=== PATIENT | female | born 1940 ===

== ENCOUNTER 2018-03-05 22:48 | Emergency (ER) | payer OTHER ==
[2018-03-05 22:49] VITALS: BMI 30.8
[2018-03-05 23:07] VITALS: RESP 18; TEMP 98; O2SAT 98
--- NOTE | 2018-03-05 23:27 | C.PDOC ---
History Of Present Illness Patient seen tonite due to high bloo pressure reading at [facility]. Having mild headache. No dizziness, no nausea or vomiting. denoies any chest pain or SOB. Chief Complaint (Nursing): High Blood Pressure History Per: Patient, Family History/Exam Limitations: no limitations Onset/Duration Of Symptoms: Hrs Current Symptoms Are (Timing): Still Present Associated Symptoms: denies: Chest Pain, Dyspnea, Dizziness, Blurred Vision, Focal Weakness, Headache Quality Of Symptoms: Asymptomatic Severity: Mild Pain Scale Rating Of: 0 Exacerbating Factor(s): Pos: None Recent travel outside of the [place]: No Additional History Per: Family Past Medical History Reviewed: Historical Data, Nursing Documentation, Vital Signs Vital Signs: Last Vital Signs Temp 98 F 03/05/18 23:04 Pulse 70 03/06/18 00:28 Resp 18 03/06/18 00:28 BP 167/55 H 03/06/18 00:28 Pulse Ox 98 03/06/18 00:31 - Medical History PMH: Diabetes, Gastritis, HTN, Hypercholesterolemia, Hypothyroidism, Kidney Stones Denies: Chronic Kidney Disease Surgical History: No Surg Hx, - [facility] Procedures DX ULTRASOUND-HEAD/NECK (01/13/15) PERCUTAN NEEDLE BX OF THYROID GLAND (01/13/15) Family History: States: Unknown Family Hx - Social History Hx Tobacco Use: No Hx Alcohol Use: No Hx Substance Use: No - Immunization History Hx Tetanus Toxoid Vaccination: No Hx Influenza Vaccination: No Hx Pneumococcal Vaccination: No Review Of Systems Constitutional: Negative for: Fever, Chills, Sweats Cardiovascular: Negative for: Chest Pain, Palpitations Respiratory: Negative for: Cough, Shortness of Breath, Hemoptysis Gastrointestinal: Negative for: Nausea, Vomiting, Abdominal Pain, Diarrhea Musculoskeletal: Negative for: Neck Pain Neurological: Negative for: Weakness, Numbness, Incoordination, Change in Speech , Confusion, Seizures, Altered Mental Status, Headache Psych: Negative for: Anxiety Physical Exam - Physical Exam Appears: Non-toxic, No Acute Distress Skin: Normal Color, Warm, Dry Head: Atraumatic, Normacephalic Eye(s): bilateral: Normal Inspection Oral Mucosa: Moist Neck: Normal ROM, Supple Chest: Symmetrical Cardiovascular: Rhythm Regular Respiratory: Normal Breath Sounds, No Rales, No Rhonchi, No Wheezing Gastrointestinal/Abdominal: Soft, No Tenderness, No Guarding, No Rebound Extremity: Normal ROM, No Tenderness, No Swelling Neurological/Psych: Oriented x3, Normal Speech Gait: Steady ED Course And Treatment - Laboratory Results Result Diagrams: 03/05/18 23:44 03/05/18 23:44 O2 Sat by Pulse Oximetry: 98 (ON RA) Pulse Ox Interpretation: Normal Medical Decision Making Medical Decision Making: Plan: * Labs * Norvasac 5 mg PO On reexamination patients BP was 167/86 Disposition Counseled Patient/Family Regarding: Diagnosis - Disposition Referrals: Non [facility] Provider, [Primary Care Provider] - [facility] [Outside] Disposition: HOME/ ROUTINE Disposition Time: 00:29 Condition: IMPROVED Additional Instructions: to take blood pressure medication 2X a day Instructions: High Blood Pressure (DC), Low Salt Diet, Medicines for High Blood Pressure Forms: [facility] (Belizean), Gen Discharge Inst Occitan Print Language: HAITIAN - POA Present On Arrival: None - Clinical Impression Clinical Impression: Hypertension - Scribe Statement The provider has reviewed the documentation as recorded by the Scribe Armin Engel All medical record entries made by the Scribe were at my direction and personally dictated by me. I have reviewed the chart and agree that the record accurately reflects my personal performance of the history, physical exam, medical decision making, and the department course for this patient. I have also personally directed, reviewed, and agree with the discharge instructions and disposition.
[2018-03-05 23:47] LABS: BASO % 0.4 % (0.0-2.0); EOS # 0.1 K/uL (0.0-0.7); EOS % 1.5 % (0.0-4.0); HEMOGLOBIN 10.5 g/dL (11.0-16.0); LYMPH # 1.9 K/uL (1.0-4.3); LYMPH % 39.9 % (20.0-40.0); MEAN CELL VOLUME 78.2 fL (81.0-99.0); MEAN CORPUSCULAR HEMOGLOBIN 26.3 pg (27.0-31.0); MEAN CORPUSCULAR HGB CONC 33.6 g/dL (33.0-37.0); MEAN PLATELET VOLUME 8.5 fL (7.2-11.7); MONO # 0.4 K/uL (0.0-0.8); MONO % 8.6 % (0.0-10.0); NEUT # 2.4 K/uL (1.8-7.0); NEUT % 49.6 % (50.0-75.0); NRBC % 0.1 % (0.0-2.0); RBC 4.01 Mil/uL (3.80-5.20); RED CELL DISTRIBUTION WIDTH 16.1 % (11.5-14.5); WHITE BLOOD COUNT 4.8 K/uL (4.8-10.8)
[2018-03-06] LABS: ALB/GLOB RATIO 1.6 (1.0-2.1); ALBUMIN 4.4 g/dL (3.5-5.0); ALT/SGPT 34 U/L (9-52); AST/SGOT 23 U/L (14-36); BLOOD UREA NITROGEN 21 mg/dL (7-17); CALCIUM 9.8 mg/dl (8.6-10.4); GFR NON-AFRICAN AMERICAN > 60
[2018-03-06 00:28] VITALS: BP 167/55; PULSE 70
== END 2018-03-06 00:39 | disposition home or self-care (01) ==
LOC: SUPCPDRO 22:48 → C.ER 22:48
DX: I10 Essential (primary) hypertension (principal)

== ENCOUNTER 2018-10-03 13:24 | Observation (INO) | payer OTHER ==
[2018-10-03 14:11] LABS: BASO # 0.1 K/uL (0.0-0.2); BASO % 0.8 % (0.0-2.0); EOS # 0.1 K/uL (0.0-0.7); EOS % 1.6 % (0.0-4.0); HEMOGLOBIN 11.1 g/dL (11.0-16.0); LYMPH # 1.9 K/uL (1.0-4.3); LYMPH % 29.7 % (20.0-40.0); MEAN CORPUSCULAR HEMOGLOBIN 27.1 pg (27.0-31.0); MEAN PLATELET VOLUME 8.8 fL (7.2-11.7); MONO # 0.4 K/uL (0.0-0.8); MONO % 6.7 % (0.0-10.0); NEUT % 61.2 % (50.0-75.0); NRBC % 0.1 % (0.0-2.0); RBC 4.11 Mil/uL (3.80-5.20); RED CELL DISTRIBUTION WIDTH 15.3 % (11.5-14.5); WHITE BLOOD COUNT 6.5 K/uL (4.8-10.8)
[2018-10-03 14:16] LABS: MEAN CELL VOLUME 82.1 fL (81.0-99.0)
[2018-10-03 14:24] LABS: PROTHROMBIN TIME 11.1 SECONDS (9.7-12.2)
--- NOTE | 2018-10-03 14:27 | RAD ---
HISTORY: SOB COMPARISON: Chest x-ray performed 09/25/13 TECHNIQUE: Chest, one view. FINDINGS: Emanation limited by habitus. LUNGS: No focal consolidation. Please note that chest x-ray has limited sensitivity for the detection of pulmonary masses. PLEURA: No significant pleural effusion identified. No definite pneumothorax . CARDIOVASCULAR: Cardiomegaly. Atherosclerotic calcifications of the aorta. OSSEOUS STRUCTURES: Degenerative changes of the spine. VISUALIZED UPPER ABDOMEN: Unremarkable. OTHER FINDINGS: None. IMPRESSION: No focal consolidation. Cardiomegaly.
[2018-10-03 14:30] LABS: ALB/GLOB RATIO 1.6 (1.0-2.1); ALBUMIN 4.6 g/dL (3.5-5.0); BLOOD UREA NITROGEN 21 mg/dL (7-17); CALCIUM 9.8 mg/dl (8.6-10.4); GFR NON-AFRICAN AMERICAN > 60
[2018-10-03 14:34] LABS: ALT/SGPT 12 U/L (9-52); AST/SGOT 37 U/L (14-36)
--- NOTE | 2018-10-03 14:43 | CT ---
Date of service: 10/03/2018 PROCEDURE: CT HEAD WITHOUT CONTRAST. HISTORY: left side numbness COMPARISON: None available. TECHNIQUE: Axial computed tomography images were obtained through the head/brain without intravenous contrast. Radiation dose: Total exam DLP = 1004.74 mGy-cm. This CT exam was performed using one or more of the following dose reduction techniques: Automated exposure control, adjustment of the mA and/or kV according to patient size, and/or use of iterative reconstruction technique. FINDINGS: HEMORRHAGE: No intracranial hemorrhage. BRAIN: [place]-white matter differentiation is preserved. There are stable scattered tiny calcifications in the left parietal lobe and posterior ashley. There are bilateral symmetric senile basal ganglia calcifications. There is no mass, mass effect or abnormal extra-axial fluid collection. There is no territorial infarction. The midline sagittal structures are normal.There are coarse atherosclerotic calcifications in the cavernous carotid arteries. VENTRICLES: There is mild age-related global parenchymal volume loss and proportionate enlargement of the ventricles and cortical sulci. CALVARIUM: There is no calvarial fracture or extracranial soft tissue swelling. PARANASAL SINUSES: Predominantly clear. MASTOID AIR CELLS: Predominantly clear. OTHER FINDINGS: None. IMPRESSION: No acute intracranial abnormality.
--- NOTE | 2018-10-03 14:54 | C.PDOC ---
History Of Present Illness 78 year old female presents to ED with complaint of left-sided facial, arm, and leg numbness that began when she woke up at 0600 today. Patient states that she went to sleep last night at 11 pm. She reports that her blood pressure is 179/79 today. She has a PMHx of hypertension. She denies chest pain and SOB. Time Seen by Provider: 10/03/18 13:38 Chief Complaint (Nursing): High Blood Pressure History Per: Patient History/Exam Limitations: no limitations Onset/Duration Of Symptoms: Hrs (10) Current Symptoms Are (Timing): Still Present Associated Symptoms: denies: Chest Pain, Dyspnea Past Medical History Reviewed: Historical Data, Nursing Documentation, Vital Signs Vital Signs: Last Vital Signs Temp 97.7 F 10/03/18 13:37 Pulse 65 10/03/18 13:37 Resp 18 10/03/18 13:37 BP 174/66 H 10/03/18 13:37 Pulse Ox 99 10/03/18 13:37 - Medical History PMH: Diabetes, Gastritis, HTN, Hypercholesterolemia, Hypothyroidism, Kidney Stones, Chronic Kidney Disease Surgical History: - [facility] Procedures DX ULTRASOUND-HEAD/NECK (01/13/15) PERCUTAN NEEDLE BX OF THYROID GLAND (01/13/15) Family History: States: Unknown Family Hx - Social History Hx Tobacco Use: No Hx Alcohol Use: No Hx Substance Use: No - Immunization History Hx Tetanus Toxoid Vaccination: No Hx Influenza Vaccination: No Hx Pneumococcal Vaccination: No Review Of Systems Except As Marked, All Systems Reviewed And Found Negative. Cardiovascular: Negative for: Chest Pain Respiratory: Negative for: Shortness of Breath Neurological: Positive for: Numbness (left- sided) Physical Exam - Physical Exam Appears: Well, Non-toxic, No Acute Distress Skin: Normal Color, Warm, Dry Head: Atraumatic, Normacephalic Eye(s): bilateral: Normal Inspection, PERRL, EOMI Chest: Symmetrical Cardiovascular: Rhythm Regular, No Murmur Respiratory: Normal Breath Sounds, No Rales, No Rhonchi, No Wheezing Gastrointestinal/Abdominal: Normal Exam, Soft, No Tenderness Extremity: Bilateral: Atraumatic, Normal Color And Temperature, Normal ROM Neurological/Psych: Oriented x3, Normal Speech, Normal Cognition ED Course And Treatment - Laboratory Results Result Diagrams: 10/03/18 14:07 10/03/18 14:07 Lab Results: PT 11.1 SECONDS (9.7-12.2) 10/03/18 14:07 INR 1.0 10/03/18 14:07 APTT 29 SECONDS (21-34) 10/03/18 14:07 Troponin I < 0.0120 ng/mL (0.00-0.120) 10/03/18 14:07 Total Bilirubin 0.6 mg/dL (0.2-1.3) 10/03/18 14:07 AST 37 U/L (14-36) H D 10/03/18 14:07 ALT 12 U/L (9-52) 10/03/18 14:07 Alkaline Phosphatase 66 U/L (38-126) 10/03/18 14:07 Total Protein 7.4 g/dL (6.3-8.3) 10/03/18 14:07 Albumin 4.6 g/dL (3.5-5.0) 10/03/18 14:07 Globulin 2.8 gm/dL (2.2-3.9) 10/03/18 14:07 Albumin/Globulin Ratio 1.6 (1.0-2.1) 10/03/18 14:07 ECG: Interpreted By Me, Viewed By Me ECG Rhythm: Sinus Bradycardia Interpretation Of ECG: Left axis deviation. Normal intervals. Non-specific T- wave changes. Rate From EC O2 Sat by Pulse Oximetry: 99 (in RA) - Other Rad CXR X-Ray: Interpreted by Me, Viewed By Me Interpretation: IMPRESSION: No focal consolidation. Cardiomegaly. - CT Scan/US Head CT Other Rad Studies (CT/US): Interpreted By Me, Read By Radiologist CT/US Interpretation: IMPRESSION: No acute intracranial abnormality. Medical Decision Making Medical Decision Making: Assessment: hypertension and left-sided numbness Plan: Head CT, EKG, and CXR ordered for patient. Labs ordered with troponin and CMP. Patient admitted to 's service. Disposition Discussed With : Rolo Sarmiento Jr. Doctor Will See Patient In The: Hospital Counseled Patient/Family Regarding: Studies Performed, Diagnosis - Disposition Disposition: HOSPITALIZED Disposition Time: 15:04 Condition: FAIR - Clinical Impression Clinical Impression: Hypertension, Numbness - Scribe Statement The provider has reviewed the documentation as recorded by the Scribe (Kristin Doan) All medical record entries made by the Scribe were at my direction and personally dictated by me. I have reviewed the chart and agree that the record accurately reflects my personal performance of the history, physical exam, medical decision making, and the department course for this patient. I have also personally directed, reviewed, and agree with the discharge instructions and disposition.
[2018-10-03] MEDS ORDERED: Aspirin 325 mg EC Tablets PO STA (15:02)
[2018-10-03] MEDS ORDERED: Aspirin 325 mg EC Tablets PO ONE (15:18)
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
[2018-10-03 17:14] VITALS: RESP 20
[2018-10-03] MEDS ORDERED: Dextrose 50% SYRINGE Inj (50 ml) IV PRN (17:29)
[2018-10-03] MEDS ORDERED: Glucagon Recombinant 1 mg Inj IM PRN (17:29)
[2018-10-03 20:28] LABS: CK-MB 1.43 ng/mL (0.0-3.38)
[2018-10-04 02:53] LABS: ALB/GLOB RATIO 1.4 (1.0-2.1); ALBUMIN 3.9 g/dL (3.5-5.0); ALT/SGPT 13 U/L (9-52); AST/SGOT 21 U/L (14-36); BLOOD UREA NITROGEN 21 mg/dL (7-17); CALCIUM 9.7 mg/dl (8.6-10.4); GFR NON-AFRICAN AMERICAN > 60
[2018-10-04 03:08] VITALS: PULSE 65
[2018-10-04 03:23] LABS: HDL CHOLESTEROL 42 mg/dL (30-70)
[2018-10-04 03:34] LABS: LDL CHOLESTEROL 94 mg/dL (0-129)
[2018-10-04 07:36] LABS: BASO % 0.5 % (0.0-2.0); EOS # 0.1 K/uL (0.0-0.7); EOS % 1.7 % (0.0-4.0); LYMPH # 2.2 K/uL (1.0-4.3); LYMPH % 37.6 % (20.0-40.0); MEAN CORPUSCULAR HEMOGLOBIN 27.4 pg (27.0-31.0); MEAN CORPUSCULAR HGB CONC 33.8 g/dL (33.0-37.0); MONO # 0.4 K/uL (0.0-0.8); MONO % 7.8 % (0.0-10.0); NEUT % 52.4 % (50.0-75.0); NRBC % 0.1 % (0.0-2.0); RED CELL DISTRIBUTION WIDTH 14.9 % (11.5-14.5); WHITE BLOOD COUNT 5.8 K/uL (4.8-10.8)
[2018-10-04 08:39] VITALS: BP 158/54; TEMP 99.3; O2SAT 97
[2018-10-04] MEDS ORDERED: methIMAzole 5 MG TAB PO SCH (10:00)
--- NOTE | 2018-10-04 11:05 | CARD ---
APPROVED REPORT Date of service: 10/03/2018 EKG Measurement Heart [id number] <Conclusion> Normal sinus rhythm Left axis deviation Minimal voltage criteria for LVH, may be normal variant Nonspecific T wave abnormality Abnormal ECG
--- NOTE | 2018-10-04 11:09 | CARD ---
APPROVED REPORT Date of service: 10/03/2018 EKG Measurement Heart [id number] <Conclusion> Sinus bradycardia Left axis deviation Moderate voltage criteria for LVH, may be normal variant Abnormal ECG
--- NOTE | 2018-10-04 11:41 | MRI ---
Date of service: 10/04/2018 PROCEDURE: MRI BRAIN WITHOUT CONTRAST HISTORY: numbness and tingling of the left hand COMPARISON: None available. TECHNIQUE: Multiplanar, multisequence MR images of the brain were obtained without intravenous contrast enhancement. FINDINGS: HEMORRHAGE: None DWI: No evidence of an acute or early subacute infarction. BRAIN PARENCHYMA: No mass effect or edema. No atrophy or chronic microvascular ischemic changes. VENTRICLES: Unremarkable. No hydrocephalus. CRANIUM: Unremarkable. ORBITS: Grossly unremarkable. PARANASAL SINUSES/MASTOIDS: Mild sinuses mucosal thickening without evidence of air-fluid level. VASCULAR SYSTEM: Skull base flow voids intact. OTHER FINDINGS: None. IMPRESSION: No evidence of acute intracranial hemorrhage or acute infarction. No MRI evidence of acute pathology or suspicious mass in the brain.
--- NOTE | 2018-10-04 12:42 | CP.PCM.DIS ---
Provider - Provider Date of Admission: 10/03/18 15:03 Attending physician: Rolo Sarmiento Jr, MD Consults: 10/03/18 15:12 Neurology Consult Routine Comment: Consulting Provider: Donaldo Tsang Consulting Physician: Donaldo Tsang Reason for Consult: left side numbness Time Spent in preparation of Discharge (in minutes): 34 Diagnosis - Discharge Diagnosis (1) Numbness Status: Resolved Hospital Course - Lab Results Lab Results: Most Recent Lab Values WBC 5.8 K/uL (4.8-10.8) 10/04/18 07:26 RBC 4.00 Mil/uL (3.80-5.20) 10/04/18 07:26 Hgb 11.0 g/dL (11.0-16.0) 10/04/18 07:26 Hct 32.4 % (34.0-47.0) L 10/04/18 07:26 MCV 81.0 fL (81.0-99.0) 10/04/18 07:26 MCH 27.4 pg (27.0-31.0) 10/04/18 07:26 MCHC 33.8 g/dL (33.0-37.0) 10/04/18 07:26 RDW 14.9 % (11.5-14.5) H 10/04/18 07:26 Plt Count 189 K/uL (130-400) 10/04/18 07:26 MPV 9.0 fL (7.2-11.7) 10/04/18 07:26 Neut % (Auto) 52.4 % (50.0-75.0) 10/04/18 07:26 Lymph % (Auto) 37.6 % (20.0-40.0) 10/04/18 07:26 [place] % (Auto) 7.8 % (0.0-10.0) 10/04/18 07:26 Eos % (Auto) 1.7 % (0.0-4.0) 10/04/18 07:26 Baso % (Auto) 0.5 % (0.0-2.0) 10/04/18 07:26 Neut # (Auto) 3.0 K/uL (1.8-7.0) 10/04/18 07:26 Lymph # (Auto) 2.2 K/uL (1.0-4.3) 10/04/18 07:26 [place] # (Auto) 0.4 K/uL (0.0-0.8) 10/04/18 07:26 Eos # (Auto) 0.1 K/uL (0.0-0.7) 10/04/18 07:26 Baso # (Auto) 0.0 K/uL (0.0-0.2) 10/04/18 07:26 PT 11.1 SECONDS (9.7-12.2) 10/03/18 14:07 INR 1.0 10/03/18 14:07 APTT 29 SECONDS (21-34) 10/03/18 14:07 Sodium 138 mmol/L (132-148) 10/04/18 02:05 Potassium 4.3 mmol/L (3.6-5.2) 10/04/18 02:05 Chloride 102 mmol/L (98-107) 10/04/18 02:05 Carbon Dioxide 28 mmol/L (22-30) 10/04/18 02:05 Anion Gap 12 (10-20) 10/04/18 02:05 BUN 21 mg/dL (7-17) H 10/04/18 02:05 Creatinine 0.8 mg/dL (0.7-1.2) 10/04/18 02:05 Est GFR ( Amer) > 60 10/04/18 02:05 Est GFR (Non-Af Amer) > 60 10/04/18 02:05 POC Glucose (mg/dL) 121 mg/dL (65-110) H 10/04/18 06:31 Random Glucose 178 mg/dL (65-105) H D 10/04/18 02:05 Hemoglobin A1c 7.1 % (4.2-6.5) H 10/04/18 07:26 Calcium 9.7 mg/dl (8.6-10.4) 10/04/18 02:05 Phosphorus 3.9 mg/dL (2.5-4.5) 10/04/18 02:05 Magnesium 1.6 mg/dL (1.6-2.3) 10/04/18 02:05 Total Bilirubin 0.3 mg/dL (0.2-1.3) 10/04/18 02:05 AST 21 U/L (14-36) 10/04/18 02:05 ALT 13 U/L (9-52) 10/04/18 02:05 Alkaline Phosphatase 68 U/L (38-126) 10/04/18 02:05 Total Creatine Kinase 79 U/L (30-135) 10/04/18 02:05 CK-MB (Mass) 1.10 ng/mL (0.0-3.38) 10/04/18 02:05 Troponin I < 0.0120 ng/mL (0.00-0.120) 10/04/18 02:05 Total Protein 6.5 g/dL (6.3-8.3) 10/04/18 02:05 Albumin 3.9 g/dL (3.5-5.0) 10/04/18 02:05 Globulin 2.7 gm/dL (2.2-3.9) 10/04/18 02:05 Albumin/Globulin Ratio 1.4 (1.0-2.1) 10/04/18 02:05 Triglycerides 205 mg/dL (0-149) H 10/04/18 02:05 Cholesterol 165 mg/dL (0-199) 10/04/18 02:05 LDL Cholesterol Direct 94 mg/dL (0-129) 10/04/18 02:05 HDL Cholesterol 42 mg/dL (30-70) 10/04/18 02:05 Free T4 1.09 ng/dL (0.78-2.19) 10/04/18 07:26 TSH 3rd Generation 1.61 mIU/L (0.46-4.68) 10/04/18 02:05 - Hospital Course Hospital Course: Upon Admission This is a 78 year old female with PMH of HTN, NIDDM2, Hypercholesterolemia, Hyperthyroidism who presents for left hand and left big toe numbness since yesterday. Denies similar symptoms in the past. She states that the numbness has improved since then, and she only has a little of the remaining numbness. Denies fever, chills, headache, chest pain, sob, abdominal pain, n/v/d, hematochezia, melena, dizziness, focal weakness, dysphagia, dysarthria, visual changes, gait changes, weight loss, dysuria, hematuria, back pain. She also reports waking up this morning with left eye conjunctival hemorrhage, nonpainful. Denies trauma Hospital Course Patient admitted for left hand and left big toe numbness. Head CT and Brain MRI were ordered which were negative for any acute intracranial pathology. Home medicines were continued. Neuro consult was ordered, neurology team determined that origin was not neurological in nature. Discharged with followup instructions and medications to take at home. Discharge Plan 1. Patient is stable for discharge to home as per Dr. Sarmiento and Dr. Tsang. 2. Patient must followup with PMD within a week of discharge from hospital. 3. Patient will resume all home medications including aspirin 325mg daily. Tony amaro was prescribed lisinopril 10mg to take once daily by mouth. Please followup with primary medical doctor for repeat blood pressure measurement within 1 week of discharge to hospital. 4. Patient was educated to take daily blood pressures. Patient educated to return to hospital if symptoms worsen or recur. 5. Patient understands the plan as above and agrees. Discharge Exam - Head Exam Head Exam: ATRAUMATIC, NORMAL INSPECTION - Eye Exam Eye Exam: EOMI, Normal appearance - ENT Exam ENT Exam: Mucous Membranes Moist - Respiratory Exam Respiratory Exam: NORMAL BREATHING PATTERN. absent: Accessory Muscle Use, Respi ratory Distress - Cardiovascular Exam Cardiovascular Exam: REGULAR RHYTHM, +S1, +S2 - GI/Abdominal Exam GI & Abdominal Exam: Normal Bowel Sounds, Soft. absent: Tenderness - Extremities Exam Extremities exam: normal inspection - Neurological Exam Neurological exam: Alert, CN II-XII Intact, Oriented x3 Additional comments: muscle strength testing in all extremities 5/5 - Psychiatric Exam Psychiatric exam: Normal Affect, Normal Mood - Skin Skin Exam: Dry, Intact, Normal Color Discharge Plan - Discharge Medications Prescriptions: Lisinopril [Zestril] 10 mg PO DAILY #30 tab - Follow Up Plan Condition: FAIR Disposition: HOME/ ROUTINE Additional Instructions: 1. Patient is stable for discharge to home as per Dr. Sarmiento and Dr. Tsang. 2. Patient must followup with PMD within a week of discharge from hospital. 3. Patient will resume all home medications including aspirin 325mg daily. Patient was prescribed lisinopril 10mg to take once daily by mouth. Please followup with primary medical doctor for repeat blood pressure measurement within 1 week of discharge to hospital. 4. Patient was educated to take daily blood pressures. Patient educated to return to hospital if symptoms worsen or recur. 5. Patient understands the plan as above and agrees.
--- NOTE | 2018-10-04 12:53 | VASCLAB ---
Date of service: 10/04/2018 PROCEDURE: Carotid Duplex Exam. HISTORY: Numbness and tingling of the left hand COMPARISON: None available. TECHNIQUE: Grayscale and duplex Doppler evaluation of the cervical carotid and vertebral arteries were performed. The common carotid, carotid bifurcations and cervical Internal Carotid Artery (ICA) and proximal External Carotid Artery (ECA) were evaluated. The vertebral arteries were evaluated for gross patency and flow direction. Report prepared by Toni Figueredo, MICAELA, RVT FINDINGS: RIGHT CAROTID ARTERIES: 1. Common Carotid Artery: No significant focal plaque formation of the right common carotid artery. Maximum Peak Systolic velocity: 73 cm/sec: End-diastolic velocity 15 cm/sec. 2. Carotid Bifurcation: plaque formation. Maximum Peak Systolic velocity: 59 cm/sec: End-diastolic velocity 10 cm/sec. 3. Internal Carotid Artery: Plaque description: 3.1. Proximal Segment: Peak systolic velocity 73 cm/sec: End-diastolic velocity 16 cm/sec - % stenosis 0-15% 3.2. Middle Segment: Peak systolic velocity 94 cm/sec: End-diastolic velocity 23 cm/sec - % stenosis 0-15% 3.3. Distal Segment: Peak systolic velocity 79 cm/sec: End-diastolic velocity 15 cm/sec - % stenosis 0-15% 4. External Carotid Artery: No significant focal plaque formation. Peak systolic velocity 212 cm/sec 5. ICA/CCA Ratio: 1.3 LEFT CAROTID ARTERIES: 1. Common Carotid Artery: No significant focal plaque formation of the left common carotid artery. Maximum Peak Systolic velocity: 79 cm/sec: End-diastolic velocity 16 cm/sec. 2. Carotid Bifurcation: plaque formation. Maximum Peak Systolic velocity: 64 cm/sec: End-diastolic velocity 11 cm/sec. 3. Internal Carotid Artery: Plaque description: 3.1. Proximal Segment: Peak systolic velocity 98 cm/sec: End-diastolic velocity 23 cm/sec - % stenosis 0-15% 3.2. Middle Segment: Peak systolic velocity 86 cm/sec: End-diastolic velocity 19 cm/sec - % stenosis 0-15% 3.3. Distal Segment: Peak systolic velocity 103 cm/sec: End-diastolic velocity 23 cm/sec - % stenosis 0-15% 4. External Carotid Artery: No significant focal plaque formation. Peak systolic velocity 133 cm/sec 5. ICA/CCA Ratio: 1.3 VERTEBRAL ARTERIES: 1. Right Vertebral Artery: The right vertebral artery flow direction is antegrade. 2. Left Vertebral Artery: The left vertebral artery flow direction is antegrade. OTHER FINDINGS: 1. Right Brachial Blood pressure: 184 mmHg. 2. Left Brachial Blood pressure: 170 mmHg. 3. No atherosclerotic calcification present IMPRESSION: RIGHT: Duplex scan does not suggest hemodynamically significant stenosis of the right extracranial carotid arteries. LEFT: Duplex scan does not suggest hemodynamically significant stenosis of the left extracranial carotid arteries.
--- NOTE | 2018-10-04 20:20 | CARD ---
APPROVED REPORT Date of service: 10/04/2018 EXAM: Two-dimensional and M-mode echocardiogram with Doppler and color Doppler. Other Information Quality : GoodRhythm : INDICATION Abnormal EKG/Arrhythmia RISK FACTORS Hypertension Hyperlipidemia 2D DIMENSIONS IVSd1.0 (0.7-1.1cm)LVDd4.4 (3.9-5.9cm) PWd0.8 (0.7-1.1cm)LA Ffydqh02 (18-58mL) LVDs2.6 (2.5-4.0cm)FS (%) 41.6 % LVEF (%)72.8 (>50%)LVEF (Flannery's)64 % M-Mode DIMENSIONS Left Atrium (MM)3.35 (2.5-4.0cm)IVSd1.02 (0.7-1.1cm) Aortic Root3.29 (2.2-3.7cm)LVDd4.93 (4.0-5.6cm) Aortic Cusp Exc.1.86 (1.5-2.0cm)PWd0.77 (0.7-1.1cm) FS (%) 45 %LVDs2.71 (2.0-3.8cm) LVEF (%)76 (>50%) Mitral Valve MV E Vphjpeff79.6cm/sMV A Buzhezks498.7cm/sE/A ratio0.7 TDI Lateral E' Peak V7.25cm/sMedial E' Peak V5.38cm/sE/Lateral E'10.4 E/Medial E'14.1 Tricuspid Valve TR Peak [id number]/sTR Peak Gr.[id number] LEFT VENTRICLE The left ventricle is normal size. There is normal left ventricular wall thickness. The left ventricular function is normal. The left ventricular ejection fraction is within the normal range. No regional wall motion abnormalities noted. Indeterminate No left ventricle thrombus noted on this study. There is no ventricular septal defect visualized. There is no left ventricular aneurysm. There is no mass noted in the left ventricle. RIGHT VENTRICLE The right ventricle is normal size. There is normal right ventricular wall thickness. The right ventricular systolic function is normal. ATRIA The left atrium size is normal. The right atrium size is normal. The interatrial septum is intact with no evidence for an atrial septal defect. AORTIC VALVE The aortic valve is normal in structure and function. No aortic regurgitation is present. There is no aortic valvular stenosis. There is no aortic valvular vegetation. MITRAL VALVE The mitral valve is normal in structure and function. There is no evidence of mitral valve prolapse. There is no mitral valve stenosis. There is no mitral valve regurgitation noted. TRICUSPID VALVE The tricuspid valve is normal in structure and function. There is no tricuspid valve regurgitation noted. There is no tricuspid valve prolapse or vegetation. There is no tricuspid valve stenosis. PULMONIC VALVE The pulmonary valve is normal in structure and function. There is no pulmonic valvular regurgitation. There is no pulmonic valvular stenosis. GREAT VESSELS The aortic root is normal in size. The ascending aorta is normal in size. The pulmonary artery is normal. The IVC is normal in size and collapses >50% with inspiration. PERICARDIAL EFFUSION The pericardium appears normal. There is no pleural effusion. <Conclusion> The left ventricular function is normal. The left ventricular ejection fraction is within the normal range. No regional wall motion abnormalities noted.
--- NOTE | 2018-10-07 15:00 | CARD ---
APPROVED REPORT Date of service: 10/04/2018 EKG Measurement Heart [id number] IN [id number] <Conclusion> Normal sinus rhythm Left axis deviation Moderate voltage criteria for LVH, may be normal variant Possible Lateral infarct, age undetermined Abnormal ECG
== END 2018-10-04 13:51 | disposition home or self-care (01) ==
LOC: C.ER 13:24 → C.9E 15:03 → C.6T 16:28
PROVIDERS: ADMIT Internal Medicine; ATTEND Internal Medicine
DX: R20.0 Anesthesia of skin (principal); E11.22 Type 2 diabetes mellitus with diabetic chronic kidney disease; I12.9 Hypertensive chronic kidney disease with stage 1 through stage 4 chronic kidney disease, or unspecified chronic kidney disease; N18.9 Chronic kidney disease, unspecified; Z80.0 Family history of malignant neoplasm of digestive organs; Z80.1 Family history of malignant neoplasm of trachea, bronchus and lung; Z82.49 Family history of ischemic heart disease and other diseases of the circulatory system; E03.9 Hypothyroidism, unspecified; E78.00 Pure hypercholesterolemia, unspecified; H11.32 Conjunctival hemorrhage, left eye; Z87.442 Personal history of urinary calculi
CPT/HCPCS: 36415; 70450; 70551; 71045; 80053; 80061; 82948; 83036; 83735; 84100; 84439; 84443; 84484; 85025; 85610; 85730; 93005; 93306; 93880; 99284; G0378; J1644